=== PATIENT | male | born 1950 | race Caucasian/White ===

== ENCOUNTER 2017-07-04 12:39 | Emergency (ER) | payer OTHER ==
[~2017-07-04] VITALS: Ht 165.1 cm; Wt 68.9 kg
[2017-07-04] MEDS ORDERED: IV NORMAL SALINE 500 ML BAG IV ONE (12:45)
[2017-07-04 12:54] LABS: BASOPHILS # (AUTO) 0.1 K/uL (0.0-8.0); BASOPHILS % (AUTO) 0.4 % (0.0-2.0); EOSINOPHILS % (AUTO) 0.1 % (0.0-7.0); HEMATOCRIT 30.9 % (36.7-47.1); HEMOGLOBIN 10.3 g/dL (12.5-16.3); LYMPHOCYTES # (AUTO) 0.8 K/uL (20.0-40.0); LYMPHOCYTES % (AUTO) 4.6 % (20.5-51.5); MEAN CORPUSCULAR HEMOGLOBIN 28.3 uug (23.8-33.4); MEAN CORPUSCULAR HGB CONC 34 g/dL (32.5-36.3); MEAN CORPUSCULAR VOLUME 84.6 fL (73.0-96.2); MONOCYTES # (AUTO) 0.6 K/uL (2.0-10.0); MONOCYTES % (AUTO) 3.5 % (0.0-11.0); NEUTROPHILS # (AUTO) 16.7 K/uL (1.8-8.9); NEUTROPHILS % (AUTO) 91.4 % (38.5-71.5); PLATELET COUNT (AUTO) 227 K/uL (152-348); RED BLOOD CELL COUNT(AUTO) 3.65 MIL/uL (4.06-5.63); WHITE BLOOD COUNT (AUTO) 18.3 K/uL (3.6-10.2)
[2017-07-04 13:00] LABS: CREATININE 5.8 mg/dL (0.6-1.3); POTASSIUM 4.5 mmol/L (3.5-5.1)
[2017-07-04] MEDS ORDERED: LISI-607 PO (13:08)
[2017-07-04] MEDS ORDERED: BISA-79 PO (13:08)
[2017-07-04] MEDS ORDERED: MONT10TA22 PO (13:19)
[2017-07-04] MEDS ORDERED: INSU3INS6 SQ ×2 (13:19)
[2017-07-04] MEDS ORDERED: INSU200I SQ (13:19)
[2017-07-04] MEDS ORDERED: BLOO-140 IN (13:19)
--- NOTE | 2017-07-04 13:40 | NUR ---
Pt sleeping with NAD noted.
--- NOTE | 2017-07-04 14:55 | NUR ---
Pt sleeping with NAD noted.
--- NOTE | 2017-07-04 15:40 | NUR ---
IV removed. Catheter intact and site benign. Pressure and 4x4 gauze applied to site. No bleeding noted.
--- NOTE | 2017-07-04 15:43 | NUR ---
Patient discharged to home in stable conditon with brother. Written and verbal after care instructions given. Patient verbalizes understanding of instructions. Pt a/ox4 upon d/c, stressed follow up pmd/Spinning L[employer] or return to ER for worsening s/s.
== END 2017-07-04 15:47 | disposition home or self-care (01) ==
LOC: ER 12:39
DX: D64.9 Anemia, unspecified (principal); E11.22 Type 2 diabetes mellitus with diabetic chronic kidney disease; I12.9 Hypertensive chronic kidney disease with stage 1 through stage 4 chronic kidney disease, or unspecified chronic kidney disease; N18.4 Chronic kidney disease, stage 4 (severe); E78.5 Hyperlipidemia, unspecified; Z88.0 Allergy status to penicillin; Z79.4 Long term (current) use of insulin; Z79.899 Other long term (current) drug therapy
CPT/HCPCS: 36415; 70030-TC; 71045; 85025; 93005; A4663